=== PATIENT | male | born 1970 ===

== ENCOUNTER 2017-08-14 08:07 | Outpatient (CLI) | payer OTHER ==
[~2017-08-14] VITALS: Ht 180.3 cm; Wt 136.5 kg
== END 2017-08-14 08:20 | disposition home or self-care (01) ==
LOC: OFIC 805 08:07
DX: J31.0 Chronic rhinitis (principal); G47.39 Other sleep apnea; T16.1XXA Foreign body in right ear, initial encounter; X58.XXXA Exposure to other specified factors, initial encounter; Y93.89 Activity, other specified; Y92.89 Other specified places as the place of occurrence of the external cause; Y99.8 Other external cause status

== ENCOUNTER 2019-01-19 16:47 | Emergency (ER) | payer OTHER ==
[~2019-01-19] VITALS: Ht 180.3 cm; Wt 136.5 kg
[2019-01-19] MEDS ORDERED: ZYRTEC10 M3 PO (19:05)
[2019-01-19] MEDS ORDERED: TRIAMCINOLONE A15 G3 TOP (19:05)
[2019-01-19] MEDS ORDERED: CETAPHIL237 ML TOP (19:05)
[2019-01-19] MEDS ORDERED: MEDROLPACK PO (19:05)
== END 2019-01-19 19:19 | disposition home or self-care (01) ==
LOC: ER 16:47
DX: L30.8 Other specified dermatitis (principal)